=== PATIENT | male | born 1950 | race Caucasian/White ===

== ENCOUNTER 2021-04-30 12:44 | Outpatient (REF) | payer OTHER, SELFPAY | END 2021-04-30 12:45 | disposition home or self-care (01) | LOC: HO.LAB 12:44 | PROVIDERS: PCP Physician Assistant Medical; Visit Provider Internal Medicine | DX: Z20.822 Contact with and (suspected) exposure to COVID-19 (principal) | CPT/HCPCS: C9803; U0003; U0005 ==

== ENCOUNTER 2024-01-11 07:02 | Day surgery (SDC) | payer OTHER, SELFPAY ==
[2024-01-06 10:59] VITALS: BMI 25.1
--- NOTE | 2024-01-07 14:15 | P.CONAN_ITS ---
Documented by User: Minerva Abernathy NP 01/07/24 14:15 HPI - Anesthesia Eval Consult details Narrative: 73yo M for Right Cataract Extraction IOL Insertion No previous cataract on record [facility] Past Medical History Medical History (Updated 01/06/24 @ 10:53 by Keerthi Mcginnis RN) Erectile dysfunction Solitary kidney, congenital HTN (hypertension) Hyperlipidemia PMR (polymyalgia rheumatica) BPH associated with nocturia Vitamin B 12 deficiency Anemia Surgical History Surgical History (Updated 01/06/24 @ 10:53 by Keerthi Mcginnis RN) History of total left hip replacement Hx of fusion of cervical spine Hx of repair of left rotator cuff H/O colonoscopy History of orchiectomy, unilateral History of total right knee replacement (TKR) Social History Social History Advance Directives: No Advance Directives Information Provided: Yes Advance Directives on File: No Meds Allergies Allergy/AdvReac Type Severity Reaction Status Date / Time No Known Allergies Allergy Unverified 04/19/20 15:22 [No Known Allergies*] Home Medications ?Medication ?Instructions ?Recorded ?Confirmed ?Last Taken ?Type cyanocobalamin (vitamin B-12) 2,000 mcg PO DAILY 01/06/24 01/06/24 Unknown History 2,000 mcg tablet diclofenac sodium 1 % topical gel 4 g topical QID PRN Pain 01/06/24 01/06/24 Unknown History folic acid 1 mg tablet 1 mg PO DAILY 01/06/24 01/06/24 Unknown History lisinopril 40 mg tablet 40 mg PO DAILY 01/06/24 01/06/24 Unknown History rosuvastatin 10 mg tablet 10 mg PO BEDTIME 01/06/24 01/06/24 Unknown History sildenafil 50 mg tablet 50 mg PO DAILY PRN Sexual Activity 01/06/24 01/06/24 Unknown History tamsulosin 0.4 mg capsule 0.4 mg PO DAILY 01/06/24 01/06/24 Unknown History Exam Height,Weight and Vital Signs: Height 5 ft 8 in Weight 74.843 kg Assessment and Plan Assessment Anesthesia Assessment: Chart Reviewed Documented by User: Oliva Desai MD 01/11/24 09:33 [facility] Past Medical History Medical History (Updated 01/06/24 @ 10:53 by Keerthi Mcginnis RN) Erectile dysfunction Solitary kidney, congenital HTN (hypertension) Hyperlipidemia PMR (polymyalgia rheumatica) BPH associated with nocturia Vitamin B 12 deficiency Anemia Family History Family history of problems with anesthesia: No Surgical History Surgical History (Updated 01/06/24 @ 10:53 by Keerthi Mcginnis RN) History of total left hip replacement Hx of fusion of cervical spine Hx of repair of left rotator cuff H/O colonoscopy History of orchiectomy, unilateral History of total right knee replacement (TKR) History of Problems with Anesthesia: No Social History Social History Advance Directives: No Advance Directives Information Provided: Yes Advance Directives on File: No Meds Allergies Allergy/AdvReac Type Severity Reaction Status Date / Time No Known Allergies Allergy Unverified 04/19/20 15:22 [No Known Allergies*] Home Medications ?Medication ?Instructions ?Recorded ?Confirmed ?Last Taken ?Type cyanocobalamin (vitamin B-12) 2,000 mcg PO DAILY 01/06/24 01/06/24 Unknown History 2,000 mcg tablet diclofenac sodium 1 % topical gel 4 g topical QID PRN Pain 01/06/24 01/06/24 Unknown History folic acid 1 mg tablet 1 mg PO DAILY 01/06/24 01/06/24 Unknown History lisinopril 40 mg tablet 40 mg PO DAILY 01/06/24 01/06/24 Unknown History rosuvastatin 10 mg tablet 10 mg PO BEDTIME 01/06/24 01/06/24 Unknown History sildenafil 50 mg tablet 50 mg PO DAILY PRN Sexual Activity 01/06/24 01/06/24 Unknown History tamsulosin 0.4 mg capsule 0.4 mg PO DAILY 01/06/24 01/06/24 Unknown History Exam Airway Mallampati Class: II TM Dist: >3cm Neck ROM: Full Assessment and Plan Assessment Anesthesia Assessment: Anesthesia Plan Discussed Final Anesthetic Review Family History of Problems with Anesthesia: No History of Problems with Anesthesia: No NPO: Yes ASA Class: II Final Preanesthetic Review: No Changes in Pt Med Stat, Meds/Allgs Chart Reviewed, Consent Obtained/Reviewed and Anes Risks/Benef Reviewed Patient Risk: Low Procedure Risk: Low Anesthetic Plan Anesthetic Plan: MAC: Disposition: Standard PACU
[2024-01-11 07:53] VITALS: BMI 28.3
[2024-01-11 07:54] VITALS: BP 160/78; PULSE 76; RESP 18; TEMP 36.1; O2SAT 97
[2024-01-11] MEDS: Tetracaine HCl/PF 0.5% Oph Sol 4 ML DROPS 1 DROP EYE-RIGHT (08:11)
[2024-01-11] MEDS: Lactated Ringers 500 ML 50 ML IV (08:11)
[2024-01-11] MEDS: Ketorolac Tromethamine 0.5% Op 10 ML DROPS 1 DROP EYE-RIGHT ×3 (08:12→08:19)
[2024-01-11] MEDS: Phenylephrine HCL 2.5% Oph SoL 2 ML BOTTLE 1 DROP EYE-RIGHT ×3 (08:12→08:19)
[2024-01-11] MEDS: Cyclopentolate 1 % Ophth Sol 2 ML DRPBTL 1 DROP EYE-RIGHT ×2 (08:13→08:18)
[2024-01-11] MEDS: Tropicamide 1 % Ophth Sol 3 ML BTL 1 DROP EYE-RIGHT ×3 (08:13→08:19)
--- NOTE | 2024-01-11 10:00 | MHC.SHP ---
Pre-Procedural Eval Section A - 24 Hr Update-Section A only Date of Service: 01/11/24 The patient is an INPATIENT: No Changes since office visit: No Cold of Flu in the past 2 weeks, No New Medical Problems, No Changes in Medication and No Patient answered all questions The patient has been examined within 24 hours of the surgical procedure. The History & Physical has been completed within 30 days and I have reviewed it.: Yes Section B - Complete if H&P > 30 days Chief Complaint: Age-related nuclear cataract, right eye Allergies: Allergies Allergy/AdvReac Type Severity Reaction Status Date / Time No Known Allergies Allergy Unverified 04/19/20 15:22 [No Known Allergies*] Plan Diagnosis/Plan: Unchanged I have reviewed the history and physical and performed a pertinent physical examination on my patient. No changes have occurred unless specified. Time Spent With Patient Time: Total time managing care of this patient today ____ minutes.
--- NOTE | 2024-01-11 10:01 | P.PCNO_ITS ---
Ophthalmology Procedure Procedure Date of Service: 01/11/24 Ophthalmology Viscoelastic: Healon Duet Dual Pack Pro Ophthalmology Lenses: IOL Acrysof MP - MA60AC (23) Procedure Notes: PREOPERATIVE DIAGNOSIS: Decreased visual acuity right eye secondary to cataract POSTOPERATIVE DIAGNOSIS: Same PROCEDURE: Right cataract extraction with intraocular lens insertion SURGEON: Markus Zamudio M.D. ANESTHESIA: Topical/MAC ESTIMATED BLOOD LOSS: None COMPLICATIONS: None After obtaining informed consent, the patient was brought to the operating room suite and placed in the supine position. After adequate sedation per anesthesia, topical drops of Tetracaine were given to the right eye. The eye was then prepped and draped in the usual sterile fashion. The operating room microscope was then positioned over the operative eye and a lid speculum placed. A paracentesis was created. Viscoelastic was then instilled into the anterior chamber. A three plane incision was then created temporally, utilizing a 2.85 mm keratome. Capsulotomy forceps were then utilized to create a circular tear capsulotomy. Hydrodissection and hydrodelineation were carried out until adequate mobilization of the nucleus occurred. Phacoemulsification was then utilized to remove the dense central nucl eus followed by removal of the cortical material utilizing the automated aspiration irrigation unit. Viscoelastic was instilled into the posterior capsular bag followed by placement of a posterior chamber intraocular lens without difficulty. The residual Viscoelastic was then removed utilizing the automated IA machine. The wound was checked and found to be watertight. The patient tolerated the procedure well and the lid speculum was removed. Intracameral injection of Vigamox 0.1 mL followed by a subtenon injection of Kenalog-40 0.2 mL were administered. The patient will be seen in the a.m.
[2024-01-11 10:32] VITALS: BP 126/68; PULSE 70; RESP 12; TEMP 36.1; O2SAT 97
== END 2024-01-11 10:40 | disposition home or self-care (01) ==
PROVIDERS: PCP Internal Medicine; Visit Provider Ophthalmology
PROC: (CPT 66985; principal; 2024-01-11 10:00)
DX: H25.11 Age-related nuclear cataract, right eye (principal)
CPT/HCPCS: 66984; J2250; J3301; V2630

== ENCOUNTER 2024-01-25 06:33 | Day surgery (SDC) | payer OTHER, SELFPAY ==
[2024-01-06 11:32] VITALS: BMI 25.1
--- NOTE | 2024-01-21 11:59 | HO.ANESPROP2 ---
Documented by User: Minerva Abernathy NP 01/21/24 11:59 HPI - Anesthesia Eval Consult details Narrative: 73yo M for Left Cataract Extraction IOL Insertion Right eye 01/11/24: [facility] 2 [facility] Past Medical History Medical History (Updated 01/06/24 @ 10:53 by Keerthi Mcginnis RN) Erectile dysfunction Solitary kidney, congenital HTN (hypertension) Hyperlipidemia PMR (polymyalgia rheumatica) BPH associated with nocturia Vitamin B 12 deficiency Anemia Family History Family history of problems with anesthesia: No Surgical History Surgical History (Updated 01/06/24 @ 10:53 by Keerthi Mcginnis RN) History of total left hip replacement Hx of fusion of cervical spine Hx of repair of left rotator cuff H/O colonoscopy History of orchiectomy, unilateral History of total right knee replacement (TKR) History of Problems with Anesthesia: No Social History Social History Advance Directives: No Advance Directives Information Provided: Yes Advance Directives on File: No Meds Allergies Allergy/AdvReac Type Severity Reaction Status Date / Time No Known Allergies Allergy Unverified 04/19/20 15:22 [No Known Allergies*] Home Medications ?Medication ?Instructions ?Recorded ?Confirmed ?Last Taken ?Type cyanocobalamin (vitamin B-12) 2,000 mcg PO DAILY 01/06/24 01/25/24 01/24/24 History 2,000 mcg tablet diclofenac sodium 1 % topical gel 4 g topical QID PRN Pain 01/06/24 01/06/24 Unknown History folic acid 1 mg tablet 1 mg PO DAILY 01/06/24 01/25/24 01/24/24 History lisinopril 40 mg tablet 40 mg PO DAILY 01/06/24 01/25/24 01/24/24 History rosuvastatin 10 mg tablet 10 mg PO BEDTIME 01/06/24 01/25/24 01/24/24 History sildenafil 50 mg tablet 50 mg PO DAILY PRN Sexual Activity 01/06/24 01/06/24 Unknown History tamsulosin 0.4 mg capsule 0.4 mg PO DAILY 01/06/24 01/25/24 01/24/24 History Exam Height,Weight and Vital Signs: Height 5 ft 8 in Weight 74.843 kg Assessment and Plan Assessment Anesthesia Assessment: Chart Reviewed Final Anesthetic Review Family History of Problems with Anesthesia: No History of Problems with Anesthesia: No Documented by User: Oliva Desai MD 01/25/24 08:10 [facility] Past Medical History Medical History (Updated 01/06/24 @ 10:53 by Keerthi Mcginnis RN) Erectile dysfunction Solitary kidney, congenital HTN (hypertension) Hyperlipidemia PMR (polymyalgia rheumatica) BPH associated with nocturia Vitamin B 12 deficiency Anemia Surgical History Surgical History (Updated 01/06/24 @ 10:53 by Keerthi Mcginnis RN) History of total left hip replacement Hx of fusion of cervical spine Hx of repair of left rotator cuff H/O colonoscopy History of orchiectomy, unilateral History of total right knee replacement (TKR) Social History Social History Advance Directives: No Advance Directives Information Provided: Yes Advance Directives on File: No Meds Allergies Allergy/AdvReac Type Severity Reaction Status Date / Time No Known Allergies Allergy Unverified 04/19/20 15:22 [No Known Allergies*] Home Medications ?Medication ?Instructions ?Recorded ?Confirmed ?Last Taken ?Type cyanocobalamin (vitamin B-12) 2,000 mcg PO DAILY 01/06/24 01/25/24 01/24/24 History 2,000 mcg tablet diclofenac sodium 1 % topical gel 4 g topical QID PRN Pain 01/06/24 01/06/24 Unknown History folic acid 1 mg tablet 1 mg PO DAILY 01/06/24 01/25/24 01/24/24 History lisinopril 40 mg tablet 40 mg PO DAILY 01/06/24 01/25/24 01/24/24 History rosuvastatin 10 mg tablet 10 mg PO BEDTIME 01/06/24 01/25/24 01/24/24 History sildenafil 50 mg tablet 50 mg PO DAILY PRN Sexual Activity 01/06/24 01/06/24 Unknown History tamsulosin 0.4 mg capsule 0.4 mg PO DAILY 01/06/24 01/25/24 01/24/24 History Exam Airway Mallampati Class: II TM Dist: >3cm Denture: Upper Assessment and Plan Assessment Anesthesia Assessment: Anesthesia Plan Discussed Final Anesthetic Review NPO: Yes ASA Class: II Final Preanesthetic Review: No Changes in Pt Med Stat, Meds/Allgs Chart Reviewed, Consent Obtained/Reviewed and Anes Risks/Benef Reviewed Patient Risk: Low Procedure Risk: Low Anesthetic Plan Anesthetic Plan: MAC: Disposition: Standard PACU
[2024-01-25 07:25] VITALS: BP 141/72; PULSE 71; RESP 16; TEMP 35.8; O2SAT 98
[2024-01-25] MEDS: Lactated Ringers 500 ML 50 ML IV (07:44)
[2024-01-25] MEDS: Tetracaine HCl/PF 0.5% Oph Sol 4 ML DROPS 1 DROP EYE-LEFT (07:44)
[2024-01-25] MEDS: Cyclopentolate 1 % Ophth Sol 2 ML DRPBTL 1 DROP EYE-LEFT ×3 (07:45→07:49)
[2024-01-25] MEDS: Tropicamide 1 % Ophth Sol 3 ML BTL 1 DROP EYE-LEFT ×3 (07:46→07:49)
[2024-01-25] MEDS: Ketorolac Tromethamine 0.5% Op 10 ML DROPS 1 DROP EYE-LEFT ×3 (07:46→07:53)
[2024-01-25] MEDS: Phenylephrine HCL 2.5% Oph SoL 2 ML BOTTLE 1 DROP EYE-LEFT ×3 (07:46→07:54)
--- NOTE | 2024-01-25 08:29 | MHC.SHP ---
Pre-Procedural Eval Section A - 24 Hr Update-Section A only Date of Service: 01/25/24 The patient is an INPATIENT: No Changes since office visit: No Cold of Flu in the past 2 weeks, No New Medical Problems, No Changes in Medication and No Patient answered all questions The patient has been examined within 24 hours of the surgical procedure. The History & Physical has been completed within 30 days and I have reviewed it.: Yes Section B - Complete if H&P > 30 days Chief Complaint: Age-related nuclear cataract, left eye Allergies: Allergies Allergy/AdvReac Type Severity Reaction Status Date / Time No Known Allergies Allergy Unverified 04/19/20 15:22 [No Known Allergies*] Plan Diagnosis/Plan: Unchanged I have reviewed the history and physical and performed a pertinent physical examination on my patient. No changes have occurred unless specified. Time Spent With Patient Time: Total time managing care of this patient today ____ minutes.
--- NOTE | 2024-01-25 08:30 | HO.PNOPHT ---
Ophthalmology Procedure Procedure Date of Service: 01/25/24 Ophthalmology Viscoelastic: Healon Duet Dual Pack Pro Ophthalmology Lenses: IOL Acrysof MP - MA60AC (23.5) Procedure Notes: PREOPERATIVE DIAGNOSIS: Decreased visual acuity left eye secondary to cataract POSTOPERATIVE DIAGNOSIS: Same PROCEDURE: Left cataract extraction with intraocular lens insertion SURGEON: Markus Zamudio M.D. ANESTHESIA: Topical/MAC ESTIMATED BLOOD LOSS: None COMPLICATIONS: None After obtaining informed consent, the patient was brought to the operation room suite and placed in the supine position. After adequate sedation per anesthesia, topical drops of Tetracaine were given to the left eye. The eye was then prepped and draped in the usual sterile fashion. The operating room microscope was then positioned over the operative eye and a lid speculum placed. A paracentesis was created. Viscoelastic was then instilled into the anterior chamber. A three plane incision was then created temporally, utilizing a 2.85 mm keratome. Capsulotomy forceps were then utilized to create a circular tear capsulotomy. Hydrodissection and hydrodelineation were carried out until adequate mobilization of the nucleus occurred. Phacoemulsification was then utilized to remove the dense central nucleus followed by removal of the cortical material utilizing the automated aspiration irrigation unit. Viscoat elastic was instilled into the posterior capsular bag followed by placement of a posterior chamber intraocular lens without difficulty. The residual Viscoat elastic was then removed utilizing the automated IA machine. The wound was check and found to be watertight. The patient tolerated the procedure well and the lid speculum was removed. Intracameral injection of Vigamox 0.1 mL followed by a subtenon injection of Kenalog-40 0.2 mL were administered. The patient will be seen in the a.m.
[2024-01-25 08:57] VITALS: BP 140/65; PULSE 67; RESP 16; TEMP 36.7; O2SAT 98
== END 2024-01-25 09:10 | disposition home or self-care (01) ==
PROVIDERS: PCP Internal Medicine; Visit Provider Ophthalmology
PROC: (CPT 66985; principal; 2024-01-25 08:20)
DX: H25.12 Age-related nuclear cataract, left eye (principal); H52.4 Presbyopia; H18.413 Arcus senilis, bilateral; H11.153 Pinguecula, bilateral; H04.123 Dry eye syndrome of bilateral lacrimal glands; I10 Essential (primary) hypertension; E78.00 Pure hypercholesterolemia, unspecified; D51.9 Vitamin B12 deficiency anemia, unspecified; M35.3 Polymyalgia rheumatica; Q60.0 Renal agenesis, unilateral; N52.9 Male erectile dysfunction, unspecified; Z79.899 Other long term (current) drug therapy
CPT/HCPCS: 66984; J2250; J3301; V2630